=== PATIENT | male | born 1945 | race Caucasian/White ===

== ENCOUNTER 2019-06-01 08:25 | Day surgery (SDC) | payer OTHER, MEDICARE ==
[~2019-06-01] VITALS: Ht 172.7 cm; Wt 114.0 kg
[~2019-06-01 08:25] MED LIST: ALLO300; AMLO10; ATEN50; CELE200; DULO60; HYDCHL25 PO; LISI20; OMEP20ER PO; RA MED; SUCR1 PO; TORSE20; XARELTO20 MG
[2019-06-01] MEDS ORDERED: ASPI81CH PO (13:20)
[2019-06-01] MEDS ORDERED: ATOR40TA PO (13:21)
--- NOTE | 2019-06-01 14:11 | NUR ---
PT DRESSED SELF WITH NO COMPLICATIONS. NO BLEEDING, OOZING OR HEMATOMA NOTED. DOT DRESSING APPLIED TO SITE. IS C/D/I. PT STATES UNDERSTANDING OF SITE CARE INSTRUCTIONS AND DISCHARGE INSTRUCTIONS. PT DENIES QUESTIONS. VSS. IV DCD WITH CATH INTACT. PT DC'D VIA WHEELCHAIR. PTS DAUGHTER IS DRIVING PT HOME. PT SENT HOME IN A SLING AND ARM BOARD TO HELP REMIND PT NOT TO USE WRIST.
== END 2019-06-01 14:15 | disposition home or self-care (01) ==
LOC: MHTC 08:25
PROC: B211YZZ Fluoroscopy of Multiple Coronary Arteries using Other Contrast (ICD-10-PCS; principal; 2019-06-01)
PROC: 4A033BC Measurement of Arterial Pressure, Coronary, Percutaneous Approach (ICD-10-PCS; principal; 2019-06-01)
DX: I25.118 Atherosclerotic heart disease of native coronary artery with other forms of angina pectoris (principal); I10 Essential (primary) hypertension; E11.9 Type 2 diabetes mellitus without complications; G47.33 Obstructive sleep apnea (adult) (pediatric); E78.5 Hyperlipidemia, unspecified; E66.01 Morbid (severe) obesity due to excess calories; I48.19 Other persistent atrial fibrillation; M10.9 Gout, unspecified; M45.9 Ankylosing spondylitis of unspecified sites in spine; M06.9 Rheumatoid arthritis, unspecified; Z87.891 Personal history of nicotine dependence; Z79.01 Long term (current) use of anticoagulants; Z79.899 Other long term (current) drug therapy; Z68.41 Body mass index [BMI] 40.0-44.9, adult; Z99.89 Dependence on other enabling machines and devices
CPT/HCPCS: 85347; 93005; 93010; 93454; 93571; 99152; 99153; C1769; C1887; C1894; J0153; J1644; J2250; J3010; J7030; Q9967

== ENCOUNTER 2022-07-05 07:29 | Emergency (ER) | payer OTHER ==
[~2022-07-05] VITALS: Ht 175.3 cm; Wt 117.9 kg
[~2022-07-05 07:29] MED LIST changes: +ASPI81CH PO; +ATOR40TA PO
[2022-07-05] MEDS ORDERED: ATENOLOL25 MG PO (10:22)
[2022-07-05] MEDS ORDERED: ALLOPURINOL100 M1 PO (10:22)
[2022-07-05] MEDS ORDERED: METFORMIN HCL500 M2 PO (10:22)
[2022-07-05] MEDS ORDERED: Norco 5-325 Ta1 EACH PO (10:28)
== END 2022-07-05 10:37 | disposition home or self-care (01) ==
LOC: ER 07:29
DX: S22.32XA Fracture of one rib, left side, initial encounter for closed fracture (principal); W19.XXXA Unspecified fall, initial encounter; Z79.01 Long term (current) use of anticoagulants; Z79.899 Other long term (current) drug therapy; Z87.891 Personal history of nicotine dependence
CPT/HCPCS: 71101

== ENCOUNTER 2023-04-10 03:13 | Emergency (ER) | payer OTHER ==
[~2023-04-10] VITALS: Ht 175.3 cm; Wt 112.0 kg
[~2023-04-10 03:13] MED LIST changes: +ALLOPURINOL100 M1 PO; +ATENOLOL25 MG PO; +METFORMIN HCL500 M2 PO; +Norco 5-325 Ta1 EACH PO
[2023-04-10 03:28] VITALS: BP 121/83
[2023-04-10] MEDS ORDERED: Voltaren100 GM TOP (04:35)
[2023-04-10] MEDS ORDERED: LIDO700A20 TOP (04:35)
== END 2023-04-10 04:57 | disposition home or self-care (01) ==
LOC: ER 03:13
DX: M62.838 Other muscle spasm (principal); I10 Essential (primary) hypertension; E78.5 Hyperlipidemia, unspecified; Z79.899 Other long term (current) drug therapy; Z79.82 Long term (current) use of aspirin; Z79.01 Long term (current) use of anticoagulants; Z79.84 Long term (current) use of oral hypoglycemic drugs; Z87.891 Personal history of nicotine dependence
CPT/HCPCS: J1885; J3010

== ENCOUNTER 2023-04-10 20:18 | Inpatient (IN) | payer OTHER ==
[~2023-04-10] VITALS: Ht 175.3 cm; Wt 115.3 kg
[~2023-04-10 20:18] MED LIST changes: +LIDO700A20 TOP; +Voltaren100 GM TOP
[2023-04-10 20:52] LABS: Hematocrit 45.9 % (37.0-53.0); Mean Corpuscular HGB 31.2 pg (26.0-34.0); Mean Corpuscular HGB Conc 32.7 g/dL (31.5-36.5); Mean Corpuscular Volume 95 fL (80-100); Mean Platelet Volume 11.3 fL (9.1-12.4); Platelet Count 118 K/mm3 (150-400); RDW Coefficient Variation 14.6 % (11.7-14.2); RDW Standard Deviation 50.9 fL (35.1-46.3); Red Blood Cell Count 4.81 M/mm3 (4.30-5.90); White Blood Cell Count 9.38 K/mm3 (4.00-11.30)
[2023-04-10 21:00] LABS: Base Excess Venous -14.4 mmol/L; Bicarbonate Venous 13.3 mmol/L (24.0-30.0)
[2023-04-10 21:01] LABS: pH Blood Venous 7.12 (7.34-7.37)
[2023-04-10 21:06] LABS: International Normalized Ratio 1.43; Prothrombin Time Results 14.7 Sec (9.7-11.5)
[2023-04-10 21:09] LABS: Albumin, Blood 3.1 g/dL (3.4-5.0); Albumin/Globulin Ratio 0.7 (0.8-1.8); Bilirubin, Total 1.1 mg/dL (0.1-1.0); Bun/Creatinine Ratio 16.1 (12.0-20.0); Calcium, Blood 9.2 mg/dL (8.5-10.1); Creatinine, Blood 3.05 mg/dL (0.60-1.20); Globulin, Blood 4.2 g/dL (2.2-4.0); Potassium, Blood 4.7 mmol/L (3.5-5.5); Thyroid Stimulating Hormone 2.01 uIU/mL (0.360-4.800); Total Protein, Blood 7.3 g/dL (6.4-8.2)
[2023-04-10 21:46] LABS: Source, Urine Foley catheter
[2023-04-10 21:50] LABS: BAND PERCENT MAN 10 % (0-8); BASOPHILS PERCENT MAN 0 % (0-2); EOSINOPHILS PERCENT MAN 0 % (0-6); LYMPHOCYTES ABSOLUTE MAN 0.37 K/mm3 (0.84-5.20); LYMPHOCYTES PERCENT MAN 4 % (21-46); METAMYELOCYTE ABSOLUTE MAN 0.18 K/mm3 (0.00-0.00); METAMYELOCYTE PERCENT MAN 2 % (0-0); MONOCYTES ABSOLUTE MAN 0.28 K/mm3 (0.16-1.47); MONOCYTES PERCENT MAN 3 % (4-13); MYELOCYTE ABSOLUTE MAN 0.09 K/mm3 (0.00-0.00); MYELOCYTE PERCENT MAN 1 % (0-0); NEUTROPHILS ABSOLUTE MAN 8.44 K/mm3 (1.96-9.15); SEG NEUTROPHILS PERCENT MAN 80 % (41-73); TOTAL CELLS COUNTED 100
[2023-04-10 22:04] LABS: Bilirubin, Urine Neg (Neg); Blood, Urine 1+ (Neg); Glucose Qualitative, Urine 1+ (Neg); Ketones, Urine Neg (Neg); Leukocyte Esterase, Urine Neg (Neg); Nitrite, Urine Neg (Neg); Protein, Urine 2+ (Neg); Specific Gravity, Urine 1.015 (1.003-1.022); Urobilinogen, Urine NORM (Normal)
[2023-04-10 22:12] LABS: Influenza A, PCR NEGATIVE (NEGATIVE); Influenza B, PCR NEGATIVE (NEGATIVE); Resp Syncytial Virus, PCR NEGATIVE (NEGATIVE); SARS-Cov-2 (COVID-19) PCR, MMC NEGATIVE (NEGATIVE)
[2023-04-10 22:36] LABS: Appearance, Urine Hazy (Clear); Color, Urine Yellow (P-Yellow)
[2023-04-10 22:38] LABS: Bacteria Few /hpf; Mucus Light (0-Heavy); Red Blood Cells, Urine 0-2 /hpf (0-2); Squamous Epithelial Cells Few /hpf (Few); White Blood Cells, Urine 0-2 /hpf (0-5)
[2023-04-11] VITALS (65 sets, daily range): BP systolic 81–164; BP diastolic 47–113
[2023-04-11 00:33] LABS: U Amphetamine Screen Not Detected; U Barbituate Screen Not Detected; U Benzodiazapine Screen Not Detected; U Buprenorphine Screen Not Detected; U Cannabinoids Screen Not Detected; U Cocaine Screen Not Detected; U Methadone Screen Not Detected; U Methamphetamine Screen Not Detected; U Opiates Screen Not Detected; U Oxycodone Screen Not Detected; U Phencyclidine Screen Not Detected; U Propoxyphene Screen Not Detected
[2023-04-11 01:53] LABS: PCO2 Arterial 49.8 mmHg (35-45); pH Blood Arterial 6.97 (7.35-7.45)
[2023-04-11 01:54] LABS: PO2 Arterial 110 mmHg (80-100)
[2023-04-11 02:30] LABS: Hematocrit 40.7 % (37.0-53.0); Hemoglobin 13.3 g/dL (13.5-17.5); Mean Corpuscular HGB Conc 32.7 g/dL (31.5-36.5); Mean Corpuscular Volume 95 fL (80-100); Mean Platelet Volume 11.3 fL (9.1-12.4); NRBC ABSOLUTE 0.02 K/mm3 (0.00-0.02); NRBC Auto 0.3 /100 WBC (0.0-0.2); Platelet Count 130 K/mm3 (150-400); RDW Coefficient Variation 14.9 % (11.7-14.2); RDW Standard Deviation 51.5 fL (35.1-46.3); Red Blood Cell Count 4.29 M/mm3 (4.30-5.90); White Blood Cell Count 5.95 K/mm3 (4.00-11.30)
[2023-04-11 02:58] LABS: Magnesium, Blood 2.9 mg/dL (1.6-2.4)
[2023-04-11 03:00] LABS: BAND PERCENT MAN 15 % (0-8); BASOPHILS ABSOLUTE MAN 0.05 K/mm3 (0.00-0.23); BASOPHILS PERCENT MAN 1 % (0-2); EOSINOPHILS PERCENT MAN 0 % (0-6); LYMPHOCYTES ABSOLUTE MAN 0.83 K/mm3 (0.84-5.20); LYMPHOCYTES PERCENT MAN 14 % (21-46); METAMYELOCYTE ABSOLUTE MAN 0.41 K/mm3 (0.00-0.00); METAMYELOCYTE PERCENT MAN 7 % (0-0); MONOCYTES ABSOLUTE MAN 0.47 K/mm3 (0.16-1.47); MONOCYTES PERCENT MAN 8 % (4-13); MYELOCYTE ABSOLUTE MAN 0.17 K/mm3 (0.00-0.00); MYELOCYTE PERCENT MAN 3 % (0-0); NEUTROPHILS ABSOLUTE MAN 3.98 K/mm3 (1.96-9.15); SEG NEUTROPHILS PERCENT MAN 52 % (41-73); TOTAL CELLS COUNTED 100
[2023-04-11 03:52] LABS: Albumin, Blood 2.4 g/dL (3.4-5.0); Albumin/Globulin Ratio 0.7 (0.8-1.8); Bilirubin, Total 1.1 mg/dL (0.1-1.0); Bun/Creatinine Ratio 17.9 (12.0-20.0); Calcium, Blood 8.7 mg/dL (8.5-10.1); Creatinine, Blood 3.18 mg/dL (0.60-1.20); Globulin, Blood 3.4 g/dL (2.2-4.0); Potassium, Blood 4.8 mmol/L (3.5-5.5); Total Protein, Blood 5.8 g/dL (6.4-8.2)
--- NOTE | 2023-04-11 04:57 | NUR ---
ARRIVAL TO ICU/ OMER LIGHT PT ARRIVED TO ICU 6 AT 0105 VIA ED BED AND TRANSFERED OVER TO ICU BED WITH SLIDE SHEET. HE IS OPENING HIS EYES TO VERBAL STIMULI AND MINIMALLY FOLLOWING DIRECTIONS. PLACED BACK ON BIPAP WITH SETTINGS 12/10, FIO2 40%. LEVOPHED WAS INFUSING AT 3MCG/KG/MIN. HE CONT TO BE DIAPHORETIC, COOL TO TOUCH. SLIGHT MOTTLING NOTED TO FEET AND EARS. AT 0123 PT BECAME UNRESPONSIVE, DICOLORED, AND APNIC; NO PULSE FOUND; OMER LIGHT CALLED. HE WAS IN PEA, COMPRESSIONS STARTED. DURING THIS TIME HE WAS INTUBATED; EPI, BICARB, CALCIUM CHLORIDE, AND AMIODERONE GIVEN. SIX MIN INTO THE CODE DURING PULSE CHECK, PT IN VTACH TO VFIB, HE WAS SHOCKED WITH 200j ONCE AND ROSC WAS OBTAINED. RHYTHM AFIB WITH RATE 114. MINUTES LATER MAG GIVEN, 500NS BOLUS GIVEN; VASOPRESSIN STARTED AND LEVOPHED TITRATED UP TO 20MCG/MIN. TWO MORE AMPS OF BICARB GIVEN AFTER ABG RESULTED. SEE CODE BLUE SHEET FOR SPECIFIC TIMES. DR LEWIS AT BEDSIDE AND PLACED CENTRAL LINE TO RIJ. OG PLACED. CHEST XRAY COMPLETED; VERBAL CONFIRMATION TO USE CENTRAL LINE AND THAT OG IN THE CORRECT PLACE. EKG COMPLETED. ABD CT COMPLETED. PT NOW MINIMALLY RESPONSIVE TO PAINFUL STIMULI; PROPOFOL STARTED AT 15MCG/KG/MIN; MOVES FOOT SPONTANIOUSLY; NO PURPOSEFUL MOVEMENT NOTED; WILL BITE DOWN ON ETT. HE IS INTUBATED WITH 8.0 ETT; VENT SETTINGS AC/VC 18/450/8/60%. HR 100-130'S; AFIB RATE NOTED; AMIODERONE INFUSING AT 1MG/MIN. BP LABILE, RIGHT NOW LEVOPHED INFUSING AT 14MCG/MIN; VASOPRESSIN INFUSING AT 0.04UNITS/MIN. ABD DISTENDED; OG CLAMPED. LONDONO PLACED IN ED AND DRAINING TO GRAVITY. HE CONT TO BE DIAPHORETIC AND COOL TO TOUCH. CHALLENGING TO GET SPO2 READING DUE TO MOTTLING; MOTTLING NOTED TO EARS, TIP OF NOSE, ABD, KNEES, AND FEET. BICARB INFUSING AT 100ML/HR. PT STEP-DAUGHTER CALLED DURING CODE WHO STATED THAT SHE "DIDN'T KNOW MUCH ABOUT HIM" AND TO CONT WHAT WE WERE DOING.
[2023-04-11 05:15] LABS: Base Excess Venous -16.1 mmol/L; Bicarbonate Venous 12.8 mmol/L (24.0-30.0); PCO2 Venous 40.4 mmHg (38-42)
[2023-04-11 05:16] LABS: pH Blood Venous 7.12 (7.34-7.37)
--- NOTE | 2023-04-11 07:11 | NUR ---
END OF SHIFT SUMMARY NO EVENTS AFTER LAST NOTE. NO ACUTE CHANGES SINCE LAST NOTE. NEW ORDERS PROVIDED FOR DIFFERENT BICARB CONCENTRATION. COOLING BLANKETS ON PT; MAX TEMP 101.1, NOW 100.3. REPORT GIVEN TO CAROLYN SCHROEDER.
--- NOTE | 2023-04-11 10:00 | NUR ---
Assumed care of pt at 0700. Report received from Nereida SCHROEDER. Pt sedated with propofol at 15 mcg/kg/min. RASS -4. No cough, gag, or corneal reflex. Attempted occulocephalic reflex, but noted bony crepitus to neck as soon as head was gently turned from neutral position. Notified pharmacist in charge owner and Dr Márquez. Katerina collar placed (pt's anatomy not compatible with standard C collar) by ER nurse, Ami. Pt taken to CT. Levophed at 14 mcg/min, vasopressin at 0.04 units/minute, amiodarone 1 mg/min. BP and HR stable. 8.0 cm ETT at expected location of 27 cm at teeth. Vent settings ACVC 18/450/8/60%. SpO2 90% or greater. Weak pleth to probe. Attempted nare, earlobe, and forehead probe. Finger probe provided strongest reading. On appearance, pt is dusky with profuse mottling. Mottled extremities and abdomen. Fingers, toes, lips, tongue, penis/scrotum are purple. Cooling measures in place for post arrest therapetic hypothermia. ABD is severely distended. RUQ is disproportionately bigger than the other quadrants. Liver margins are palpable. No new urine in bunch bag. Hypoglycemic on first check this shift with venous sampling. D50 given and CBG stable with rechecks.
[2023-04-11 10:53] LABS: Hematocrit 43.6 % (37.0-53.0); Hemoglobin 13.6 g/dL (13.5-17.5); Mean Corpuscular HGB 31.2 pg (26.0-34.0); Mean Corpuscular HGB Conc 31.2 g/dL (31.5-36.5); Mean Platelet Volume 11.8 fL (9.1-12.4); NRBC ABSOLUTE 0.03 K/mm3 (0.00-0.02); NRBC Auto 0.4 /100 WBC (0.0-0.2); Platelet Count 157 K/mm3 (150-400); RDW Coefficient Variation 15.3 % (11.7-14.2); RDW Standard Deviation 55.8 fL (35.1-46.3); Red Blood Cell Count 4.36 M/mm3 (4.30-5.90); White Blood Cell Count 7.53 K/mm3 (4.00-11.30)
[2023-04-11 11:20] LABS: Mean Corpuscular Volume 100 fL (80-100)
[2023-04-11 11:48] LABS: Albumin, Blood 2.3 g/dL (3.4-5.0); Albumin/Globulin Ratio 0.7 (0.8-1.8); Bilirubin, Total 1.7 mg/dL (0.1-1.0); Bun/Creatinine Ratio 16.6 (12.0-20.0); Calcium, Blood 7.8 mg/dL (8.5-10.1); Creatinine, Blood 3.8 mg/dL (0.60-1.20); Globulin, Blood 3.5 g/dL (2.2-4.0); Potassium, Blood 5.5 mmol/L (3.5-5.5); Total Protein, Blood 5.8 g/dL (6.4-8.2)
[2023-04-11 12:48] LABS: BAND PERCENT MAN 33 % (0-8); BASOPHILS ABSOLUTE MAN 0.07 K/mm3 (0.00-0.23); BASOPHILS PERCENT MAN 1 % (0-2); EOSINOPHILS ABSOLUTE MAN 0.07 K/mm3 (0.00-0.68); EOSINOPHILS PERCENT MAN 1 % (0-6); LYMPHOCYTES PERCENT MAN 8 % (21-46); METAMYELOCYTE PERCENT MAN 16 % (0-0); MONOCYTES ABSOLUTE MAN 0.37 K/mm3 (0.16-1.47); MONOCYTES PERCENT MAN 5 % (4-13); MYELOCYTE ABSOLUTE MAN 0.22 K/mm3 (0.00-0.00); MYELOCYTE PERCENT MAN 3 % (0-0); NEUTROPHILS ABSOLUTE MAN 4.96 K/mm3 (1.96-9.15); SEG NEUTROPHILS PERCENT MAN 33 % (41-73); TOTAL CELLS COUNTED 100
--- NOTE | 2023-04-11 13:20 | NUR ---
Next of kin, Chela, and her spouse, Dariusz, in to see patient. Updates given by both this RN and Dr Márquez. Family asks questions and seems receptive to education and conversation provided. 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
--- NOTE | 2023-04-11 14:22 | NUR ---
pt on ventilator. tremors some eye opening. pot mottled and cool. Reviw of the past few ER visits and [facility] visits. Pt haveing increasing pain to neck. Called family to review prognosis. They feel DNR is best. They were tearfull and spoke with his minster who came to visit. They expressed that he has no children or family to contact. He has a step daughter and her they are willing to help with his decisions and care. They relay how kind he was to his and to their family. The understand he may suffer to much and will transtion to comfort in he declines more. Pt kps score is 25%.
--- NOTE | 2023-04-11 17:32 | NUR ---
SUMMARY Propofol off. Withdraws to painful stimulus. Opens eyes to verbal stimulus. Remains out of restraints. No changes to vent settings or ET tube placement. 15 mL urine output. OG to LIS. No BM. Abd remains distended. Progression of mottling. Central line dressing changed. Vasopressors per OCT. Report given to Vania SCHROEDER.
--- NOTE | 2023-04-11 18:27 | NUR ---
ASSUMPTION OF CARE AND SHIFT SUMMARY ASSUMED CARE OF PATIENT AT 1730. PATIENT RESPONSIVE TO VERBAL AND NOXIOUS STIMULI. NO PURPOSEFUL MOVEMENT NOTED. PROPOFOL HAS BEEN OFF. MARY COLLAR IN PLACE AND TO REMAIN PER DR. HUFFMAN. NO SIGNS OF PAIN NOTED AT THIS TIME. COOLING MEASURES DC'D THIS SHIFT. PATIENT ON VENT SETTINGS OF AC 18, TV 450, PEEP 8 AND 60% FIO2. HR IN THE 50S. SBP 80S TO 90S. LEVOPHED AT 8 MCG/ MINUTE. VASOPRESSIN AT 0.04 UNITS/ MINUTE. AMIODARONE AT 0.5 MG/ MINUTE AND TO STAY AT THIS RATE UNTIL FURTHER NOTICE. BICARB AT 100 MLS/ HOUR. L D. PEDAL PULSE ABSENT; ALL OTHER FOOT PULSES DOPPLER. RADIAL PULSES FAINT TO PALPATION. RUQ DISTENDED. ABD SOFT. OG TO LIS. DATE OF LAST BM UNKNOWN. NPO. SKIN HEAVILY MOTTLED. NOSE, EARS, PENIS DARK PURPLE IN COLOR. LONDONO IN PLACE. NURSE REPORTED THAT PATIENT ONLY HAD 15 MLS OUT ON THIS DAY SHIFT. STEP DAUGHTER SPOKE WITH DAUGHTER AND DECISION MADE NOT TO ESCALATE CARE ANY FURTHER. BED LOW, CALL LIGHT IN REACH. REPORT WILL BE GIVEN TO ASSUMING INFORMATION SYSTEMS ANALYST NURSE SHORTLY.
--- NOTE | 2023-04-11 19:42 | NUR ---
ASSUMED CARE AT 1900 PT IS REQUIRING MORE SUPPORTIVE MEDS FOR BLOOD PRESSURE AT SHIFT CHANGE. FAMILY MEMBER YASEMIN CALLED WHO ARRIVED AT BEDSIDE QUICKLY. CONVERSATION WITH YASEMIN, DAY SHIFT CHARGE NURSE, DAY SHIFT BEDSIDE NURSE, AND THIS NURSE REGARDING PLAN OF CARE. FAMILY HAS DECIDED TO HAVE PT GO COMFORT CARE FOR "HE WOULD NOT WANT TO LIVE LIKE THIS". DR HUFFMAN CALLED AND COMFORT CARE ORDERS IN PLACE. PLAN TO EXTUBATED WHEN RT IS NEXT AVAILABLE.
--- NOTE | 2023-04-11 20:08 | NUR ---
UPDATE/TOD ATIVAN GIVEN BEFORE EXTUBATION FOR COMFORT 1949 EXTUBATION 1951 MEDICATIONS STOPPED 1956 PT CALL MADE TO FAMILY, ALL BELONGINGS ARE TO BE SENT TO THE HOME. THEY ARE SELECTING A HOME AND WILL CALL HOSPITAL BACK. CALLS MADE TO PROVIDERS.
== END 2023-04-11 19:57 | DRG 308 ==
LOC: ER 20:18 → ICUE 23:34 → PCU 23:34 → ICUE 04-11 01:03
PROVIDERS: Student in an Organized Health Care Education/Training Program; ADMIT Internal Medicine
PROC: 5A1935Z Respiratory Ventilation, Less than 24 Consecutive Hours (ICD-10-PCS; principal; 2023-04-10)
PROC: 0BH17EZ Insertion of Endotracheal Airway into Trachea, Via Natural or Artificial Opening (ICD-10-PCS; 2023-04-10)
PROC: 5A09357 Assistance with Respiratory Ventilation, Less than 24 Consecutive Hours, Continuous Positive Airway Pressure (ICD-10-PCS; 2023-04-10)
PROC: 5A12012 Performance of Cardiac Output, Single, Manual (ICD-10-PCS; 2023-04-10)
PROC: 0DH67UZ Insertion of Feeding Device into Stomach, Via Natural or Artificial Opening (ICD-10-PCS; 2023-04-10)
PROC: 0T9B70Z Drainage of Bladder with Drainage Device, Via Natural or Artificial Opening (ICD-10-PCS; 2023-04-10)
PROC: 4A033R1 Measurement of Arterial Saturation, Peripheral, Percutaneous Approach (ICD-10-PCS; 2023-04-10)
PROC: 3E033XZ Introduction of Vasopressor into Peripheral Vein, Percutaneous Approach (ICD-10-PCS; 2023-04-10)
PROC: 3E03329 Introduction of Other Anti-infective into Peripheral Vein, Percutaneous Approach (ICD-10-PCS; 2023-04-10)
PROC: 5A2204Z Restoration of Cardiac Rhythm, Single (ICD-10-PCS; 2023-04-10)
DX: I49.01 Ventricular fibrillation (principal); A40.1 Sepsis due to streptococcus, group B; J96.01 Acute respiratory failure with hypoxia; K72.00 Acute and subacute hepatic failure without coma; R65.21 Severe sepsis with septic shock; N17.0 Acute kidney failure with tubular necrosis; E87.20 Acidosis, unspecified; G93.40 Encephalopathy, unspecified; M62.82 Rhabdomyolysis; Z66 Do not resuscitate; Z51.5 Encounter for palliative care; I48.20 Chronic atrial fibrillation, unspecified; I95.9 Hypotension, unspecified; I46.2 Cardiac arrest due to underlying cardiac condition; K74.60 Unspecified cirrhosis of liver; I67.9 Cerebrovascular disease, unspecified; R47.81 Slurred speech; R57.0 Cardiogenic shock; E78.5 Hyperlipidemia, unspecified; E66.01 Morbid (severe) obesity due to excess calories; E11.649 Type 2 diabetes mellitus with hypoglycemia without coma; M50.30 Other cervical disc degeneration, unspecified cervical region; M06.9 Rheumatoid arthritis, unspecified; M45.0 Ankylosing spondylitis of multiple sites in spine; W18.30XA Fall on same level, unspecified, initial encounter; Z20.822 Contact with and (suspected) exposure to COVID-19; G47.33 Obstructive sleep apnea (adult) (pediatric); Z87.891 Personal history of nicotine dependence; Z79.82 Long term (current) use of aspirin; Z79.891 Long term (current) use of opiate analgesic; Z79.811 Long term (current) use of aromatase inhibitors; Z79.84 Long term (current) use of oral hypoglycemic drugs; Z79.899 Other long term (current) drug therapy; Z79.01 Long term (current) use of anticoagulants; Z68.36 Body mass index [BMI] 36.0-36.9, adult; Z78.1 Physical restraint status
CPT/HCPCS: 0241U; 31500; 36415; 36556; 36600; 51702; 51798; 70450; 70496; 70498; 71045; 71275; 72125; 74176; 80053; 81001; 82550; 82803; 82947; 83605; 83735; 83880; 84443; 84484; 85025; 85610; 87040; 87147; 93005; 93010; 93306; 94002; 94660; 96361-59; 96365-59; 96366-59; 96367-59; 96375-59; 96376-59; 99291-25; C1751; J0282; J0692; J1644; J2060; J2704; J3370; J3475; J7030; J7040; J7060; J7070; P9047; Q9967